=== PATIENT | male | born 1970 | race Caucasian/White ===

== ENCOUNTER 2023-11-20 18:35 | Outpatient (CLI) | payer OTHER, SELFPAY | END 2023-11-20 23:59 | LOC: LAB.DROPOF 18:39 | PROVIDERS: PCP Student in an Organized Health Care Education/Training Program; Visit Provider Student in an Organized Health Care Education/Training Program | DX: J02.9 Acute pharyngitis, unspecified (principal); R09.81 Nasal congestion | CPT/HCPCS: 87635 ==

== ENCOUNTER 2024-06-16 08:45 | Outpatient (CLI) | payer OTHER, SELFPAY ==
[2024-06-16 18:29] LABS: Basophils # 0.1 K/mm3 (0-0.2); Basophils % 1.2 % (0.1-2.0); Eosinophils # 0.1 K/mm3 (0.0-0.4); Eosinophils % 1.9 % (0.1-12.0); Hematocrit 54.3 % (42.0-52.0); Hemoglobin 17.3 g/dL (14.1-18.0); Lymphocytes # 1.6 K/mm3 (0.7-4.5); Lymphocytes % 21.9 % (10-50); Mean Corpuscular HGB Conc 31.8 g/dL (31.8-35.4); Mean Corpuscular Hemoglobin 29.9 pg (27.0-31.2); Mean Corpuscular Volume 94.2 fl (80-94); Mean Platelet Volume 9.2 fl (7.4-10.4); Monocytes # 0.5 K/mm3 (0.1-1.0); Monocytes % 6.1 % (1.7-9.3); Neutrophils # 5.1 K/mm3 (1.8-7.8); Neutrophils % 68.8 % (37.0-80.0); Platelet Count 266 K/mm3 (142-424); Red Blood Count 5.77 M/mm3 (4.60-6.20); Red Cell Distribution Width 14.5 % (11.5-17.5); White Blood Count 7.3 K/mm3 (4.8-10.8)
[2024-06-16 18:48] LABS: Hemoglobin A1C 5.7 % (4.0-6.0)
[2024-06-16 19:37] LABS: Alanine Aminotransferase 47 U/L (12-78); Albumin Level 4.3 g/dl (3.5-5.0); Albumin/Globulin Ratio 1.5 (1.1-1.8); Alkaline Phosphatase 134 U/L (38-126); Anion Gap 10.4 mEq/L (5-15); Aspartate Amino Transferase 33 U/L (17-59); Bilirubin,Total 0.6 mg/dl (0.2-1.3); Blood Urea Nitrogen 14 mg/dl (9-20); Calcium 9.3 mg/dl (8.4-10.2); Carbon Dioxide 27 mmol/L (22.0-30.0); Chloride 104 mmol/L (98-107); Chol/HDL Ratio 3.7 (1-3.5); Cholesterol 143 mg/dl (140-200); Estimated Glomerular Filt Rate 118 ml/min (>60); GFR (African American) 143 ML/MIN (>60); Globulin 2.9 g/dL (1.3-3.2); Glucose 154 mg/dl (74-100); HDL Cholesterol 39 mg/dl (40-60); Potassium 4.4 mmoL/L (3.5-5.1); Sodium 137 mmol/L (136-145); Total Protein,Serum 7.2 g/dl (6.3-8.2); Triglycerides 203 mg/dl (30-150); VLDL Cholesterol 41 mg/dL (0-40)
[2024-06-16 19:48] LABS: Direct LDL Cholesterol 72.72 mg/dL (100-129)
[2024-06-16 19:52] LABS: 25-OH Vitamin D, Total 36.6 ng/mL (30-100)
[2024-06-16 20:11] LABS: Prostate Specific Ag Screen 1.3 ng/ml (0.0-4.0); Thyroid Stimulating Hormone 1.92 uIU/mL (0.465-4.68)
== END 2024-06-16 23:59 | disposition home or self-care (01) ==
LOC: LAB.DROPOF 06-17 14:45
PROVIDERS: PCP Student in an Organized Health Care Education/Training Program; Visit Provider Student in an Organized Health Care Education/Training Program
DX: E11.9 Type 2 diabetes mellitus without complications (principal); Z13.21 Encounter for screening for nutritional disorder; Z13.29 Encounter for screening for other suspected endocrine disorder; Z12.5 Encounter for screening for malignant neoplasm of prostate; Z79.4 Long term (current) use of insulin
CPT/HCPCS: 80050; 80053; 80061; 82306; 83036; 84443; 85025; G0103

== ENCOUNTER 2024-08-02 07:55 | Outpatient (CLI) | payer OTHER, SELFPAY ==
--- NOTE | 2024-08-02 07:59 | XR_ITS ---
FINAL REPORT CLINICAL HISTORY: left knee pain COMPARISON: None FINDINGS: LEFT KNEE: Three views of the left knee reveal no evidence of fracture or dislocation. The bony alignment is normal. Mild degenerative change is present. There is no evidence of joint effusion. No localized soft tissue abnormality is seen. IMPRESSION: Mild degenerative change, with no acute abnormality identified. Reviewed, Interpreted and Dictated by Neeraj Becker III, MD Transcribed by Betina Graves Authenticated and [facility]
== END 2024-08-02 23:59 | disposition home or self-care (01) ==
LOC: RAD 07:56
PROVIDERS: PCP Student in an Organized Health Care Education/Training Program; Visit Provider Orthopaedic Surgery
DX: M25.562 Pain in left knee (principal)
CPT/HCPCS: 73562

== ENCOUNTER 2024-11-20 08:56 | Emergency (ER) | payer OTHER, SELFPAY ==
[2024-11-20 08:57] VITALS: BP 118/82; PULSE 71; RESP 15; TEMP 36.5; O2SAT 98; BMI 31.8
--- NOTE | 2024-11-20 09:03 | ECG_ITS ---
APPROVED REPORT Exam: Resting ECG HR:70 bpm ECG Measurements Heart Rate 70 AXES NH 176 P 75 QRSd 92 QRS 57 QT 384 T 41 QTc 405 Conclusion SINUS RHYTHM LOW QRS VOLTAGE IN PRECORDIAL LEADS [QRS DEFLECTION < 1.0 mV IN CHEST LEADS] BORDERLINE ECG UNCONFIRMED REPORT Electronically signed by : NADER BOLES, 11/21/2024 23:14:37
[2024-11-20 09:04] VITALS: BP 118/82; PULSE 71; O2SAT 95
--- NOTE | 2024-11-20 09:07 | PC.NURSE ---
pt glucose is 209
--- NOTE | 2024-11-20 09:12 | PC.NURSE ---
Respiratory notified that a green top was sent to the lab for a VBG
--- NOTE | 2024-11-20 09:13 | HMH.EDGENADL ---
Discharge Plan Disposition Patient Disposition: Home, Self-Care Prescriptions Prescriptions: New ondansetron 4 mg tablet,disintegrating 4 mg PO Q6HP PRN (Reason: nausea and vomiting) 4 Days Qty: 16 0RF No Action tadalafil 5 mg tablet 5 mg PO DAILY (DME) pen needle, diabetic [BD Ultra-Fine Mini Pen Needle] 31 gauge x 3/16 needle See Rx Instructions .Route Rx Instructions: As directed Jardiance 25 mg tablet 25 mg PO DAILY Qty: 90 1RF insulin glargine U-300 conc [Toujeo SoloStar U-300 Insulin] 300 unit/mL (1.5 mL) insulin pen 30 unit SQ DAILY Qty: 4.5 3RF lisinopril 10 mg tablet 10 mg PO DAILY Qty: 90 3RF nebivolol [Bystolic] 5 mg tablet 5 mg PO DAILY Qty: 90 3RF pravastatin 40 mg tablet 40 mg PO DAILY Qty: 90 3RF lansoprazole 30 mg capsule,delayed release(DR/EC) 30 mg PO DAILY Qty: 90 3RF divalproex 500 mg tablet extended release 24 hr 500 mg PO DAILY testosterone 10 mg/0.5 gram /actuation gel in metered-dose pump 1 pump transdermal DAILY Rx Instructions: apply evenly over front and inner area of one thigh; avoid water for >=2 hrs alprazolam 0.5 mg tablet 0.5 mg PO DAILY PRN (Reason: anxiety) Qty: 30 0RF venlafaxine 75 mg capsule,extended release 24hr 75 mg PO DAILY Qty: 60 1RF venlafaxine 150 mg capsule,extended release 24hr 150 mg PO DAILY Qty: 60 1RF tirzepatide 2.5 mg/0.5 mL pen injector 2.5 mg SQ WEEKLY Qty: 2.5 0RF Rx Instructions: for 4 weeks (DME) 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 See Rx Instructions .Route Qty: 1 0RF Rx Instructions: As directed, check BG TID and prn ondansetron 4 mg tablet,disintegrating See Rx Instructions .ROUTE .COMPLEX Qty: 20 0RF Dose Instruction: DISSOLVE ONE TABLET BY MOUTH EVERY 8 HOURS NEEDED FOR NAUSEA AND VOMITING Rx Instructions: DISSOLVE ONE TABLET BY MOUTH EVERY 8 HOURS NEEDED FOR NAUSEA AND VOMITING (DME) Dexcom G7 Sensor Device See Rx Instructions .Route Qty: 1 3RF Rx Instructions: As directed to monitor blood glucose, change sensor every 10 days Referrals Follow up/Referrals: Zane Hazel DO [Primary Care Provider] - See instructions Activity Restrictions/Add. Instructions Additional Instructions/Restrictions: At this time it was felt you are safe to be discharged home. If new or worsening symptoms please do not hesitate to return the emergency department. Please take your medication as prescribed. As discussed it is probably in her best interest to discontinue taking your Mounjaro although it is difficult for me to tell at this time if it was due to your Mounjaro or due to toxin mediated gastroenteritis (food poisoning from your shrimp dinner). If your symptoms are persistent for longer than 5 to 7 days but are not getting worse please follow-up with your PCP for continued evaluation. Clinical Impressions Clinical Impression: Vomiting, Diarrhea Instructions Patient Instructions: DI for Acute Abdominal Pain Print Language Print Language: Monegasque Discharge ED Provider: Jaciel Rizzo General Adult HPI General Chief complaint: Abdominal Pain Stated complaint: N/V/D, Heart palpitations Time Seen by Provider: 11/20/24 08:58 History of Present Illness HPI narrative: Patient is a 54-year-old male past medical history of insulin-dependent diabetes, hypertension who presents to the emergency department for evaluation of vomiting, diarrhea, intermittent dizziness and palpitations. Onset was acute, over the last 24 hours. Patient recently ate a dinner containing shrimp, he also has recently started Mounjaro 2.5 mg 48 hours ago. He has tolerated Mounjaro previously however it has been sometime in the interim. Vomiting and diarrhea is nonbloody, no chest pain reported. There is some epigastric discomfort but no discrete pain. Previous abdominal surgeries include cholecystectomy. No dysuria reported. His sugars have been in the 100s to 200s per at bedside. When vomiting and diarrhea were intractable he began to sweat causing them to become concerned and present here for continued evaluation. No sick contacts at home. No other acute complaints at this time. Please note that above description of symptoms, in this electronic medical record under categorization of recalled from ER triage doctor by RN are reflective of an initial nursing assessment, however, is not reflective of my full history and physical exam that was personally taken and clarified. Consequentially, this preceding description of symptoms, which may include the patient's categorized chief complaint in the EMR, do not reflect my personal clinical impression, and the ultimate description of history of present illness and patient stated complaints should be deferred to this section of the note. Unless stated otherwise or congruent with this section of the note, additional signs, symptoms, or incongruence should be interpreted as inaccurate with my clinical impression. Related Data Home Medications ?Medication ?Instructions ?Recorded ?Confirmed pen needle, diabetic 31 gauge x 06/16/24 11/20/2412/04 (BD Ultra-Fine Mini Pen Needle) tadalafil 5 mg tablet 5 mg PO DAILY 06/16/24 11/20/24 divalproex 500 mg tablet,extended 500 mg PO DAILY 06/17/24 11/20/24 release 24 hr testosterone 10 mg/0.5 1 pump transdermal DAILY 08/02/24 11/20/24 gram/actuation transdermal gel pump Previous Rx's ?Medication ?Instructions ?Recorded empagliflozin 25 mg tablet 25 mg PO DAILY #90 tabs 06/16/24 (Jardiance) insulin glargine U-300 conc 300 30 unit (0.1 mL) SQ DAILY #4.5 mL 06/16/24 unit/mL (1.5 mL) subcutaneous pen (Toujeo SoloStar U-300 Insulin) lansoprazole 30 mg capsule,delayed 30 mg PO DAILY #90 caps 06/16/24 release lisinopril 10 mg tablet 10 mg PO DAILY #90 tabs 06/16/24 nebivolol 5 mg tablet (Bystolic) 5 mg PO DAILY #90 tabs 06/16/24 pravastatin 40 mg tablet 40 mg PO DAILY #90 tabs 06/16/24 tirzepatide 2.5 mg/0.5 mL 2.5 mg (0.5 mL) SQ WEEKLY #2.5 mL 09/05/24 subcutaneous pen injector blood-glucose meter,continuous #1 ea 09/08/24 (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) alprazolam 0.5 mg tablet 0.5 mg PO DAILY PRN anxiety #30 10/19/24 tabs ondansetron 4 mg disintegrating See Rx Instructions .Route 10/19/24 tablet .COMPLEX #20 tabs venlafaxine 150 mg 150 mg PO DAILY #60 caps 10/19/24 capsule,extended release 24 hr venlafaxine 75 mg capsule,extended 75 mg PO DAILY #60 caps 10/19/24 release 24 hr blood-glucose sensor (Dexcom G7 #1 ea 10/20/24 Sensor device) ondansetron 4 mg disintegrating 4 mg PO Q6HP PRN nausea and 11/20/24 tablet vomiting 4 days #16 tabs Allergies Allergy/AdvReac Type Severity Reaction Status Date / Time promethazine (From Phenergan) Allergy Palpitation Verified 11/20/24 09:08 s [facility] Disclaimer: The information contained in this section may have been updated after the patient was seen, as this information can be updated by other users. Medical History Hyperlipidemia Diabetes mellitus Hypertension Surgical History Hx of tonsillectomy Family History Mother FHx: mental illness Anxiety Other No significant family history Social History Smoking Status: Never smoker alcohol intake: never current occupational status: employed Travel in the last 8 weeks: Inside the [place] Have you lived/traveled outside [place] in past 30 days?: No Contact w/someone who lives/traveled outside [place] past 30 days?: No Exposure to someone with infectious disease in past 14 days?: No Do you have a fever (greater than 100.4 F or 38 C)?: No Have you tested positive for COVID-19: No Exposed to someone with COVID-19 in past 14 days?: No Do you have a sore throat?: No Do you have a cough?: No Do you have any weakness?: No Do you have any diarrhea?: Yes Are you experiencing any unusual bleeding?: No Do you have any muscle aches/pain?: No Do you have any abdominal pain?: No Are you experiencing loss of taste or smell?: No Other Medical History Have you received the Pneumonia Vaccine: No ROS Obtained: Yes Systems reviewed as appropriate & no additional complaints except as documented Physical Exam General General appearance: alert and other (Appearing uncomfortable in bed) Head Head exam: atraumatic and normocephalic Eye Eye exam: Present PERRL ENT ENT exam: Present mucous membranes moist Neck Neck exam: Present normal inspection Chest Chest inspection: Present normal inspection and symmetric chest wall rise Respiratory Respiratory exam: Present normal lung sounds bilaterally; Absent respiratory distress Cardiovascular Cardiovascular exam: Present regular rate, normal rhythm and other (Capillary refill 2 to 3 seconds) Abdominal Exam Abdominal exam: Present soft and tenderness (Mild, epigastric); Absent guarding or rebound Extremities Exam Extremities exam: Present normal inspection Neurological Exam Neurological exam: Present alert Psychiatric Psychiatric exam: Present normal affect Skin Skin exam: Present warm and dry Medical Decision Making Medical Records Screening: Per USPSTF and CDC recommendations, given the prevalence of disease in our region, it is our hospital?s policy to screen for HIV and viral Hepatitis for all patients aged 18 and over and those with ongoing risk factors. Damien Inquiry Pt receiving controlled substance: No Vital Signs: 11/20/24 08:57 11/20/24 09:04 11/20/24 09:30 Temperature 97.7 F Temperature Source Oral Pulse Rate 71 72 Pulse Rate [Left Radial] 71 Respiratory Rate 15 14 Blood Pressure 118/82 123/82 Blood Pressure [Right Arm] 118/82 Blood Pressure Mean [Right Arm] 94 Blood Pressure Source [Right Arm] Automatic Cuff Blood Pressure Position [Right Arm] Supine 02 Sat by Pulse Oximetry 98 95 99 Oxygen Delivery Method Room Air Room Air Room Air Lab Data Lab Results 11/20/24 09:00: WBC 16.1 H, RBC 6.40 H, Hct 55.9 H, MCV 87.3, MCH 29.1, MCHC 33.3, RDW 13.3, Plt Count 325, MPV 9.9, Neut % (Auto) 82.6 H, Lymph % (Auto) 8.3 L, [place] % (Auto) 6.8, Eos % (Auto) 0.6, Baso % (Auto) 0.7, Neut # (Auto) 13.3 H, Lymph # (Auto) 1.3, [place] # (Auto) 1.1 H, Eos # (Auto) 0.1, Baso # (Auto) 0.1, VBG pH 7.35, VBG pCO2 50.0, VBG pO2 26.6 L, VBG HCO3 27.2, VBG Total CO2 28.7 H, VBG O2 Saturation 45.2 L, VBG Base Excess 1.6, VBG Lactic Acid 1.7, Sodium 139, Potassium 5.0, Chloride 99, Carbon Dioxide 32 H, Anion Gap 13.0, BUN 19, Creatinine 0.90, Estimated Creat Clear 141, Estimated GFR 88, Est GFR ( Amer) 106, Glucose 223 H, Calcium 9.9, Magnesium 1.9, Total Bilirubin 0.9, Alkaline Phosphatase 131 H, Troponin I < 0.01, Total Protein 8.7 H, Albumin 5.3 H, Globulin 3.4 H, Albumin/Globulin Ratio 1.6, Lipase 127 11/20/24 09:00 11/20/24 09:00 Orders (Tests/Meds): ED MEDICATIONS Discontinued Medications Generic Name Dose Route Start Last Admin Trade Name Freq PRN Reason Stop Dose Admin Belladonna Alkaloids 60 ml 11/20/24 09:44 11/20/24 09:46 Belladonna Alkaloids 60 Ml Ml PO 11/20/24 09:45 60 ml ONCE ONE Administration Lactated Ringer's 1,000 mls @ 999 mls/hr 11/20/24 09:08 11/20/24 09:23 Lactated Ringer's 1000 Ml Bag IV 11/20/24 10:08 999 mls/hr .Q1H1M ONE Administration Ondansetron HCl 4 mg 11/20/24 09:09 11/20/24 09:23 Ondansetron 4mg/2ml Vial IV 11/20/24 09:10 4 mg ONCE ONE Administration ORDERS Category Date Time Status Acetone, Serum (Rapid) Stat Lab 11/20/24 09:00 Results CBC w/Auto Diff [Complete Blood Count Auto Diff] Stat Lab 11/20/24 09:00 Results CMP [Comprehensive Metabolic Panel] Stat Lab 11/20/24 09:00 Results HIV Combo Stat Lab 11/20/24 09:18 Ordered Hepatitis C Ab Qual. W/ RFX Stat Lab 11/20/24 09:18 Ordered Lipase Stat Lab 11/20/24 09:00 Results Magnesium Stat Lab 11/20/24 09:00 Results Rapid PCR Covid and Flu A/B Stat Lab 11/20/24 09:05 Received Trop I [Troponin I] Stat Lab 11/20/24 09:00 Results Troponin I Q3H Lab 11/20/24 12:15 Ordered Troponin I Q3H Lab 11/20/24 15:15 Ordered UA [Urinalysis and Microscopic] Stat Lab 11/20/24 09:13 Ordered VBG [Venous Blood Gas] Stat RT 11/20/24 09:00 Completed ECG Data Tracing #1: Independently interpreted by me rate is 70, rhythm is regular, axis is normal, no ST elevation in anatomical contiguous leads, QTc 405. Medical Decision Narrative: In summary patient is a 54-year-old male past medical history described above who presents emergency department for evaluation of vomiting, diarrhea, diaphoresis and subjective palpitations in the setting of recent seafood ingestion, recent Mounjaro initiation. Patient is hemodynamically stable and nontoxic-appearing upon arrival, afebrile, appearing uncomfortable in bed. Differential diagnosis includes toxin mediated gastroenteritis, medication adverse reaction, atypical ACS, DKA, viral syndrome, pancreatitis, among others. Workup will be conducted with hematologic labs, EKG, troponin, viral swab, urinalysis, VBG. Initial inventions include Zofran, crystalloid bolus. CT imaging was considered however given that he is only mildly tender in the epigastric region has a nonfocal abdominal exam otherwise will be deferred. Stool studies unlikely to significantly alter care due to duration of symptoms less than 10 days and no recent antibiotic use will be deferred. EKG nonischemic. Patient will be placed on continuous cardiac monitoring. Initial hematologic labs reviewed by me leukocytosis of 16.1 of undetermined etiology, could be due to infection or stress mediated response from vomiting which I would expect. Compensated acid-base status rules out DKA no elevated lactate normal pH, no critical electrolyte abnormality or JENNIFER, initial troponin undetectably low glucose 223 nonactionable lipase normal. Upon repeat evaluation patient had reflux type symptoms due to persistent vomiting for which GI cocktail will be administered. Patient underwent p.o. trial with successful at bedside, was more well-appearing than when he presented and had no dynamic changes in the emergency department. Given this. The patient is appropriate for outpatient management at this time and patient was given return precautions verbalized understanding will be discharged with a course of Zofran and he will discontinue his Mounjaro. Critical Care Critical Care Time Critical Care Time: No
[2024-11-20 09:16] LABS: Basophils # 0.1 K/mm3 (0-0.2); Basophils % 0.7 % (0.1-2.0); Eosinophils # 0.1 K/mm3 (0.0-0.4); Eosinophils % 0.6 % (0.1-12.0); Hematocrit 55.9 % (42.0-52.0); Lymphocytes # 1.3 K/mm3 (0.7-4.5); Lymphocytes % 8.3 % (10-50); Mean Corpuscular HGB Conc 33.3 g/dL (31.8-35.4); Mean Corpuscular Hemoglobin 29.1 pg (27.0-31.2); Mean Corpuscular Volume 87.3 fl (80-94); Mean Platelet Volume 9.9 fl (7.4-10.4); Monocytes # 1.1 K/mm3 (0.1-1.0); Monocytes % 6.8 % (1.7-9.3); Neutrophils # 13.3 K/mm3 (1.8-7.8); Neutrophils % 82.6 % (37.0-80.0); Platelet Count 325 K/mm3 (142-424); Red Cell Distribution Width 13.3 % (11.5-17.5); White Blood Count 16.1 K/mm3 (4.8-10.8)
[2024-11-20 09:18] LABS: Lactate Venous 1.7 mmol/L (0.4-2.0); VBG Base Excess 1.6 mmol/L (-2.4-2.3); VBG HCO3 27.2 mmol/L (23-30); VBG Oxygen Saturation 45.2 % (50-70); VBG PH 7.35 mmol/L (7.31-7.41); VBG PO2 26.6 mmol/L (28-40); VBG Total CO2 28.7 mmol/L (23-27)
[2024-11-20 09:23] LABS: Albumin Level 5.3 g/dl (3.5-5.0); Albumin/Globulin Ratio 1.6 (1.1-1.8); Alkaline Phosphatase 131 U/L (38-126); Bilirubin,Total 0.9 mg/dl (0.2-1.3); Blood Urea Nitrogen 19 mg/dl (9-20); Calcium 9.9 mg/dl (8.4-10.2); Carbon Dioxide 32 mmol/L (22.0-30.0); Chloride 99 mmol/L (98-107); Creatinine Clearance Estimated 141 mL/min (50-200); Estimated Glomerular Filt Rate 88 ml/min (>60); GFR (African American) 106 ML/MIN (>60); Globulin 3.4 g/dL (1.3-3.2); Glucose 223 mg/dl (74-100); Lipase 127 U/L (23-300); MANUAL DIFFERENTIAL MANUAL DIFFERENTIAL (MANUAL DIFF); Magnesium 1.9 mg/dl (1.6-2.3); Sodium 139 mmol/L (136-145); Total Protein,Serum 8.7 g/dl (6.3-8.2)
[2024-11-20] MEDS: LACTATED RINGERS 1000ML 1,000 ML 999 ML IV (09:23)
[2024-11-20] MEDS: ONDANSETRON 4MG/2ML VIAL 4 MG IV (09:23)
[2024-11-20 09:30] VITALS: BP 123/82; PULSE 72; RESP 14; O2SAT 99
--- NOTE | 2024-11-20 09:34 | PC.NURSE ---
at bs speaking with pt and
[2024-11-20 09:42] LABS: Troponin I < 0.01 ng/ml (0.00-0.034)
[2024-11-20] MEDS: BELLADONNA ALKALOIDS 60 ML ML PO (09:46)
--- NOTE | 2024-11-20 09:50 | PC.NURSE ---
pt unable to urinate at this time, aware that it is needed.
[2024-11-20 10:00] VITALS: BP 122/87; PULSE 77; RESP 21; O2SAT 99
--- NOTE | 2024-11-20 10:04 | PC.NURSE ---
Pt was given a Starry. Call light is within reach. No other needs at this time
[2024-11-20 10:07] LABS: Coronavirus 19, PCR Not Detected (NotDetected); Influenza A, PCR Not Detected (NotDetected); Influenza B, PCR Not Detected (NotDetected)
[2024-11-20 10:18] LABS: Hemoglobin 18.6 g/dL (14.1-18.0)
--- NOTE | 2024-11-20 10:26 | PC.NURSE ---
pt waiting on fluids to finish for dc
--- NOTE | 2024-11-20 10:26 | PC.NURSE ---
AT BS SPEAKING WITH PT AND
[2024-11-20 10:27] VITALS: BP 128/87; PULSE 74; RESP 19; O2SAT 98
[2024-11-20 10:28] LABS: Alanine Aminotransferase 70 U/L (12-78); Aspartate Amino Transferase 59 U/L (17-59)
[2024-11-20 10:50] VITALS: BP 127/81; PULSE 78; RESP 19; TEMP 36.5; O2SAT 98
[2024-11-20 11:11] LABS: Acetone, Serum (Rapid) None Detected (None Detect)
[2024-11-20 11:15] LABS: Eosinophils % 1 % (0-3); Lymphocytes % 10 % (10-50); Monocytes % 6 % (2-9); Neutrophils % 83 % (42-76); Platelet Estimate Normal; RBC Morphology Normal; Total Cells Counted 100
[2024-11-20 11:49] LABS: HIV Combo NEGATIVE (Negative)
[2024-11-20 11:57] LABS: Hepatitis C Ab Qual. W/ RFX NEGATIVE (Negative)
== END 2024-11-20 10:51 | disposition home or self-care (01) ==
PROVIDERS: Emergency Provider Emergency Medicine; PCP Internal Medicine
DX: R11.10 Vomiting, unspecified (principal); R19.7 Diarrhea, unspecified; R00.2 Palpitations; R42 Dizziness and giddiness; R61 Generalized hyperhidrosis; R10.13 Epigastric pain
CPT/HCPCS: 80053; 82009; 82803; 83690; 83735; 84484; 85007; 85025; 85027; 86803; 87389; 87636; 93005; 96361; 96374; 99283; J2405; J7120

== ENCOUNTER 2024-12-02 09:23 | Outpatient (CLI) | payer OTHER, SELFPAY ==
[2024-12-02 13:18] LABS: Creatinine,Urine Random 84 mg/dL (Not Estab.); Microalbumin < 6.000 mg/L (0-16.7)
[2024-12-02 13:48] LABS: Hemoglobin A1C 7.8 % (4.0-6.0)
[2024-12-10 19:10] LABS: Testosterone, Total, LC/MS 387 ng/dL (.)
== END 2024-12-02 23:59 | disposition home or self-care (01) ==
LOC: LAB.DROPOF 12-05 10:24
PROVIDERS: PCP Internal Medicine; Visit Provider Internal Medicine
DX: E11.9 Type 2 diabetes mellitus without complications (principal); E29.1 Testicular hypofunction
CPT/HCPCS: 82043; 82570; 83036; 84403

== ENCOUNTER 2025-01-26 09:58 | Emergency (ER) | payer OTHER, SELFPAY ==
[2025-01-26] VITALS (7 sets, daily range): BP systolic 100–122; BP diastolic 68–85; PULSE 66–82; RESP 16; TEMP 36.6–36.7; O2SAT 96–99; BMI 26.9
--- NOTE | 2025-01-26 10:05 | PC.NURSE ---
in room at bed side talking with patient at this time
[2025-01-26] MEDS: LACTATED RINGERS 1000ML 1,000 ML 999 ML IV (10:17)
--- NOTE | 2025-01-26 10:19 | ECG_ITS ---
APPROVED REPORT Exam: Resting ECG HR:75 bpm ECG Measurements Heart Rate 75 AXES MN 166 P 21 QRSd 89 QRS 10 QT 363 T 2 QTc 391 Conclusion SINUS RHYTHM No acute ST changes concerning for ischemia. Normal intervals Electronically signed by : KAT VALDEZ, 01/26/2025 16:21:58
--- NOTE | 2025-01-26 10:24 | PC.NURSE ---
Rounded on patient, warm blanket provided at this time.
[2025-01-26 10:25] LABS: VBG Base Excess 0.7 mmol/L (-2.4-2.3); VBG HCO3 26.6 mmol/L (23-30); VBG Oxygen Saturation 70.1 % (50-70); VBG PCO2 51.2 mmol/L (35-51); VBG PH 7.33 mmol/L (7.31-7.41); VBG PO2 38.4 mmol/L (28-40); VBG Total CO2 28.1 mmol/L (23-27)
--- NOTE | 2025-01-26 10:28 | HMH.EDGENADL ---
Discharge Plan Disposition Patient Disposition: Home, Self-Care Condition: Good Prescriptions Prescriptions: New ibuprofen 800 mg tablet 800 mg PO Q8H PRN (Reason: pain) Qty: 20 0RF ondansetron 4 mg tablet,disintegrating 4 mg PO Q8H PRN (Reason: nausea and vomiting) 4 Days Qty: 12 0RF No Action tadalafil 5 mg tablet 5 mg PO DAILY (DME) pen needle, diabetic [BD Ultra-Fine Mini Pen Needle] 31 gauge x 3/16 needle See Rx Instructions .Route Rx Instructions: As directed Jardiance 25 mg tablet 25 mg PO DAILY Qty: 90 1RF lisinopril 10 mg tablet 10 mg PO DAILY Qty: 90 3RF nebivolol [Bystolic] 5 mg tablet 5 mg PO DAILY Qty: 90 3RF pravastatin 40 mg tablet 40 mg PO DAILY Qty: 90 3RF lansoprazole 30 mg capsule,delayed release(DR/EC) 30 mg PO DAILY Qty: 90 3RF divalproex 500 mg tablet extended release 24 hr 500 mg PO DAILY (DME) 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 See Rx Instructions .Route Qty: 1 0RF Rx Instructions: As directed, check BG TID and prn (DME) Dexcom G7 Sensor Device See Rx Instructions .Route Qty: 1 3RF Rx Instructions: As directed to monitor blood glucose, change sensor every 10 days insulin glargine U-300 conc [Toujeo SoloStar U-300 Insulin] 300 unit/mL (1.5 mL) insulin pen See Rx Instructions .ROUTE .COMPLEX Qty: 4.5 3RF Dose Instruction: INJECT 30 UNITS SUBCUTANEOUSLY EVERY DAY Rx Instructions: INJECT 30 UNITS SUBCUTANEOUSLY EVERY DAY alprazolam 0.5 mg tablet 0.5 mg PO DAILY PRN (Reason: anxiety) Qty: 30 0RF testosterone 20.25 mg/1.25 gram (1.62 %) gel in metered-dose pump 2 pump topical DAILY Qty: 75 0RF Rx Instructions: apply 1 pump amount over max area of EACH upper arm and shoulder tirzepatide 7.5 mg/0.5 mL pen injector 7.5 mg SQ WEEKLY Qty: 2.5 2RF venlafaxine 75 mg capsule,extended release 24hr 75 mg PO DAILY Qty: 60 1RF venlafaxine 150 mg capsule,extended release 24hr 150 mg PO DAILY Qty: 60 1RF ondansetron 4 mg tablet,disintegrating 4 mg PO Q6HP PRN (Reason: nausea and vomiting) 4 Days Qty: 16 0RF Referrals Follow up/Referrals: Zane Hazel DO [Primary Care Provider] - See instructions Activity Restrictions/Add. Instructions Additional Instructions/Restrictions: You were evaluated in the emergency department today. Please follow-up very close with your primary care provider. It is unclear at this time if this could be related to the shrimp that you ate versus a reaction to the Mounjaro. I recommend seeking his guidance on continuance of this medication. 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 You may also take Tylenol every 4-6 hours as needed for any sort of pain or fever. I recommend bowel rest and eating bland diet, starting with liquid diet and slowly advancing your diet as able. Return to the emergency department for new or worsening symptoms. We have provided you with an outpatient order form for diarrhea panel if you are able to provide a stool specimen. Clinical Impressions Clinical Impression: Diarrhea, Eosinophilia, Elevated lipase Stand Alone Forms Stand Alone Forms: Work/School Release Instructions Patient Instructions: DI for Diarrhea and Traveler's Diarrhea -- Adult, DI for Nausea -- Adult, Full Liquid Diet Print Language Print Language: Tamazight Discharge ED Provider: Tory Macias General Adult HPI General Chief complaint: Nausea/Vomiting/Diarrhea Stated complaint: Sent by PCP. Diarr, Colon Infection Time Seen by Provider: 01/26/25 10:04 Mode of Arrival: Ambulatory Source of Information: Patient Description of Symptoms (Recalled from ER Triage Doc. by RN): patient states he has had nausea vomiting diarrhea for one week. he reports he takes mounjaro and the dose was increased on last thursday and since then the diarrhea has gotten worse. he reports going approximatley 10-15 times the past 3 days. denies any abdominal pain History of Present Illness HPI narrative: This patient is a 54-year-old male with a history of insulin-dependent diabetes now off of insulin managed on Mounjaro, hypertension, hyperlipidemia presenting to the emergency department for evaluation with concern for nausea, vomiting, and diarrhea. Patient reports that he has had issues with nausea and vomiting with Mounjaro, but it typically subsides after a day or 2. He notes that he took an increased dose going from 5 mg to 7.5 mg 10 days ago, and since then he has been very ill. He notes he initially had his usual nausea/vomiting, which subsided after a few days, however he has had persistent watery diarrhea since then. He notes that he had about 15 bowel movements last night and had to sleep in the bathroom floor because he was losing control of his bowels. He has not had any fevers, chest pain, shortness of breath, abdominal pain, hematemesis, melena, or hematochezia. He also denies any urinary symptoms such as dysuria, urinary frequency, urinary urgency. No known sick contacts. He notes that he has had a colonoscopy every 2 to 3 years because of a family history of rectal cancer, and he has had normal colonoscopies with no history of diverticulosis. Related Data Home Medications ?Medication ?Instructions ?Recorded ?Confirmed pen needle, diabetic 31 gauge x 06/16/24 12/02/2412/04 (BD Ultra-Fine Mini Pen Needle) tadalafil 5 mg tablet 5 mg PO DAILY 06/16/24 12/02/24 divalproex 500 mg tablet,extended 500 mg PO DAILY 06/17/24 12/02/24 release 24 hr Previous Rx's ?Medication ?Instructions ?Recorded empagliflozin 25 mg tablet 25 mg PO DAILY #90 tabs 06/16/24 (Jardiance) lansoprazole 30 mg capsule,delayed 30 mg PO DAILY #90 caps 06/16/24 release lisinopril 10 mg tablet 10 mg PO DAILY #90 tabs 06/16/24 nebivolol 5 mg tablet (Bystolic) 5 mg PO DAILY #90 tabs 06/16/24 pravastatin 40 mg tablet 40 mg PO DAILY #90 tabs 06/16/24 blood-glucose,children's literature professor,cont #1 ea 09/08/24 (Dexcom G7 Tree Driller) blood-glucose sensor (Dexcom G7 #1 ea 10/20/24 Sensor device) ondansetron 4 mg disintegrating 4 mg PO Q6HP PRN nausea and 11/20/24 tablet vomiting 4 days #16 tabs insulin glargine U-300 conc 300 See Rx Instructions .Route 01/02/25 unit/mL (1.5 mL) subcutaneous pen .COMPLEX #4.5 mL (Touecho SoloStar U-300 Insulin) alprazolam 0.5 mg tablet 0.5 mg PO DAILY PRN anxiety #30 01/04/25 tabs testosterone 2 pump topical DAILY #75 grams 01/09/25 tirzepatide 7.5 mg/0.5 mL 7.5 mg (0.5 mL) SQ WEEKLY #2.5 mL 01/09/25 subcutaneous pen injector venlafaxine 150 mg 150 mg PO DAILY #60 caps 01/13/25 capsule,extended release 24 hr venlafaxine 75 mg capsule,extended 75 mg PO DAILY #60 caps 01/13/25 release 24 hr ibuprofen 800 mg tablet 800 mg PO Q8H PRN pain #20 tabs 01/26/25 ondansetron 4 mg disintegrating 4 mg PO Q8H PRN nausea and 01/26/25 tablet vomiting 4 days #12 tabs Allergies Allergy/AdvReac Type Severity Reaction Status Date / Time promethazine (From Phenergan) Allergy Palpitation Verified 01/26/25 10:48 s PFS PFS Disclaimer: The information contained in this section may have been updated after the patient was seen, as this information can be updated by other users. Medical History Low testosterone level in male Hyperlipidemia Diabetes mellitus Hypertension Surgical History History of colonoscopy H/O vasectomy Hx of cholecystectomy Hx of tonsillectomy Family History Mother FHx: mental illness Father Cancer Other No significant family history Social History Smoking Status: Never smoker alcohol intake: current alcohol intake frequency: holidays/special occasions only substance use type: denies use current occupational status: employed Travel in the last 8 weeks?: None Have you lived/traveled outside [place] in past 30 days?: No Contact w/someone who lives/traveled outside [place] past 30 days?: No Exposure to someone with infectious disease in past 14 days?: No Do you have a fever (greater than 100.4 F or 38 C)?: No Have you tested positive for COVID-19?: No Exposed to someone with COVID-19 in past 14 days?: No Do you have a sore throat?: No Do you have a cough?: No Do you have any weakness?: No Do you have any diarrhea?: Yes Are you experiencing any unusual bleeding?: No Do you have any muscle aches/pain?: No Do you have any abdominal pain?: Yes Are you experiencing loss of taste or smell?: No Other Medical History Have you received the Pneumonia Vaccine: No ROS Obtained: Yes All systems reviewed & no additional complaints except as documented Physical Exam General General appearance: alert and in no apparent distress Head Head exam: atraumatic and normocephalic Eye Eye exam: Present normal appearance, PERRL and EOMI ENT ENT exam: Present normal exam, normal oropharynx, mucous membranes moist and normal external ear exam Neck Neck exam: Present normal inspection, full ROM and trachea midline; Absent tenderness Chest Chest inspection: Present normal inspection and symmetric chest wall rise; Absent tenderness Respiratory Respiratory exam: Present normal lung sounds bilaterally; Absent respiratory distress, wheezes, stridor or accessory muscle use Cardiovascular Cardiovascular exam: Present regular rate and normal rhythm Abdominal Exam Abdominal exam: Present soft and tenderness (Mild left-sided/left upper quadrant tenderness to deep palpation, otherwise abdominal exam is benign); Absent distention or guarding Extremities Exam Extremities exam: Present normal inspection, full ROM and normal capillary refill; Absent tenderness or edema Back Exam Back exam: Present normal inspection and full ROM; Absent tenderness Neurological Exam Neurological exam: Present alert, oriented X3, CN II-XII intact and normal gait; Absent motor sensory deficit Psychiatric Psychiatric exam: Present normal affect and normal mood Skin Skin exam: Present warm and dry Medical Decision Making Medical Records Medical records reviewed: Yes I reviewed the patient's medical records. Screening: Per USPSTF and CDC recommendations, given the prevalence of disease in our region, it is our hospital?s policy to screen for HIV and viral Hepatitis for all patients aged 18 and over and those with ongoing risk factors. Damien Inquiry Pt receiving controlled substance: No Vital Signs: 01/26/25 10:04 01/26/25 10:06 01/26/25 10:30 Temperature 97.8 F Temperature Source Oral Pulse Rate 82 77 Pulse Rate [Left Radial] 78 Respiratory Rate 16 Blood Pressure 122/85 111/70 Blood Pressure [Left Arm] 122/85 Blood Pressure Mean [Left Arm] 97 Blood Pressure Source Blood Pressure Source [Left Arm] Automatic Cuff Blood Pressure Position Blood Pressure Position [Left Arm] Supine 02 Sat by Pulse Oximetry 96 99 97 Oxygen Delivery Method Room Air 01/26/25 11:00 01/26/25 11:30 01/26/25 12:00 Temperature Temperature Source Pulse Rate 77 67 66 Pulse Rate [Left Radial] Respiratory Rate Blood Pressure 111/69 116/74 100/68 L Blood Pressure [Left Arm] Blood Pressure Mean [Left Arm] Blood Pressure Source Blood Pressure Source [Left Arm] Blood Pressure Position Blood Pressure Position [Left Arm] 02 Sat by Pulse Oximetry 96 96 96 Oxygen Delivery Method 01/26/25 12:33 Temperature 98.1 F Temperature Source Oral Pulse Rate 78 Pulse Rate [Left Radial] Respiratory Rate 16 Blood Pressure 110/68 Blood Pressure [Left Arm] Blood Pressure Mean [Left Arm] Blood Pressure Source Automatic Cuff Blood Pressure Source [Left Arm] Blood Pressure Position Sitting Blood Pressure Position [Left Arm] 02 Sat by Pulse Oximetry Oxygen Delivery Method Room Air Lab Data Lab results reviewed: Yes I reviewed the patient's lab results. Lab Results 01/26/25 10:09: VBG pH 7.33, VBG pCO2 51.2 H, VBG pO2 38.4, VBG HCO3 26.6, VBG Total CO2 28.1 H, VBG O2 Saturation 70.1 H, VBG Base Excess 0.7, VBG Lactic Acid 2.0 01/26/25 10:14: Sodium 137, Potassium 3.5, Chloride 102, Carbon Dioxide 31 H, Anion Gap 7.5, BUN 11, Creatinine 0.80, Estimated Creat Clear 142, Estimated GFR 101, Est GFR ( Amer) 122, Glucose 145 H, Calcium 9.4, Phosphorus 3.5, Magnesium 1.8, Total Bilirubin 0.4, AST 37, ALT 35, Alkaline Phosphatase 135 H, Total Protein 7.0, Albumin 4.1, Globulin 2.9, Albumin/Globulin Ratio 1.4, Lipase 357 H, TSH 1.13, Thyroxine (T4) 8.4 01/26/25 10:31: WBC 10.0, RBC 5.16, Hgb 15.1, Hct 44.5, MCV 86.2, MCH 29.3, MCHC 33.9, RDW 12.9, Plt Count 184, MPV 9.8, Neut % (Auto) 47.7, Lymph % (Auto) 23.4, [place] % (Auto) 4.6, Eos % (Auto) 22.4 H, Baso % (Auto) 1.0, Neut # (Auto) 4.8, Lymph # (Auto) 2.4, [place] # (Auto) 0.5, Eos # (Auto) 2.3 H, Baso # (Auto) 0.1, Total Counted 100, Neutrophils % (Manual) 53, Band Neutrophils % 1.0, Lymphocytes % (Manual) 25, Monocytes % (Manual) 2, Eosinophils % (Manual) 19 H, Platelet Estimate Normal, RBC Morphology Normal 01/26/25 10:31 01/26/25 10:14 Orders (Tests/Meds): ED MEDICATIONS Discontinued Medications Generic Name Dose Route Start Last Admin Trade Name Freq PRN Reason Stop Dose Admin Famotidine 20 mg 01/26/25 11:25 01/26/25 11:47 Famotidine 20mg/2ml Vial IV 01/26/25 11:26 20 mg ONCE ONE Administration Lactated Ringer's 1,000 mls @ 999 mls/hr 01/26/25 10:09 01/26/25 10:17 Lactated Ringer's 1000 Ml Bag IV 01/26/25 11:09 999 mls/hr .Q1H1M ONE Administration Ondansetron HCl 4 mg 01/26/25 10:36 01/26/25 10:43 Ondansetron 4mg/2ml Vial IV 01/26/25 10:37 4 mg ONCE ONE Administration Sodium Chloride 8 ml 01/26/25 11:25 Sodium Chloride 0.9% 10ml Vial IV 02/25/25 11:24 NEEDED PRN dilute pepcid ORDERS Category Date Time Status Complete Blood Count Auto Diff Stat Lab 01/26/25 10:31 Completed Comprehensive Metabolic Panel Stat Lab 01/26/25 10:14 Completed Diarrhea 23 Panel, PCR Stat Lab 01/26/25 12:27 Received Lipase Stat Lab 01/26/25 10:14 Completed MAG [Magnesium] Stat Lab 01/26/25 10:14 Completed PHOS [Phosphorous] Stat Lab 01/26/25 10:14 Completed T4 (Thyroxine) Stat Lab 01/26/25 10:14 Completed TSH [Thyroid Stimulating Hormone] Stat Lab 01/26/25 10:14 Completed VBG [Venous Blood Gas] Stat RT 01/26/25 10:09 Completed ECG Data Tracing #1: I reviewed this ECG and interpreted as documented below: Normal sinus rhythm with a ventricular rate of [address] changes concerning for ischemia. Normal intervals ECG initial impression date: 01/26/25 ECG initial impression time: 10:20 Medical Decision Narrative: In summary, this patient is a 54-year-old male presenting to the Emergency Department for evaluation of nausea, vomiting, and diarrhea. Differential diagnoses considered include but are not limited to side effect of Mounjaro, gastroenteritis, bacterial gastroenteritis, viral gastroenteritis, diverticulitis, dehydration, electrolyte derangements. Ruling out the most morbid conditions drove assessment. It should be noted patient's history includes obesity, type 2 diabetes, hypertension which are currently being well-managed. This complicates all aspects of care by increasing patient's risk for morbidity. I reviewed patient's past medical records and noted prior PCP evaluations for maintenance of health and management of Mounjaro. On exam, the patient is lying in bed in no acute distress with normal vitals on cardiac telemetry. He has minimal left-sided abdominal tenderness to very deep palpation, but no rebound or guarding. He is nontoxic-appearing. Workup included CBC, CMP, lipase, magnesium, phosphorus, diarrhea panel, EKG. He was given a bolus of IV fluids as well as IV Zofran for symptomatic improvement. On multiple subsequent reassessments, the patient is resting comfortably in bed with no recurrence of diarrhea. He initially was unable to provide a stool specimen, however I provided him with a drink and crackers and he was able to provide us with a small sample. This was sent and is pending for testing. CBC demonstrates no significant leukocytosis, but he does have eosinophilia. His then noted that he had had diarrhea in the past after eating shrimp, and he did have shrimp yesterday. It is possible he could have some allergic response/histamine response to the shrimp that is causing worsened diarrhea in the setting of some GI upset that it was pre-existing related to his Mounjaro. Chemistry demonstrates a very mildly elevated lipase, but he does not have any significant abdominal tenderness, even to deep palpation. He also complains of no significant abdominal pain. I considered CT imaging of the abdomen, however I had shared decision-making with the patient and his , and we are in agreement that he likely does not have acute surgical intra-abdominal pathology and I do not feel that is likely to pattern changer. CT scan was deferred at this time after discussion was had with patient. Pepcid was administered given concern for possible eosinophilic/histamine response causing his diarrhea. Ultimately, patient is well-appearing with benign abdominal exam and normal vitals on cardiac telemetry. Labs overall are very reassuring with diarrhea panel pending. I feel he is appropriate for discharge home with prescriptions for ibuprofen, Zofran, and instructions for bowel rest. He was given instructions for very close follow-up with his primary care provider, instructions to avoid shellfish, and very strict return precautions at time of discharge. Critical Care Critical Care Time Critical Care Time: No
[2025-01-26 10:35] LABS: Alanine Aminotransferase 35 U/L (12-78); Albumin Level 4.1 g/dl (3.5-5.0); Albumin/Globulin Ratio 1.4 (1.1-1.8); Alkaline Phosphatase 135 U/L (38-126); Anion Gap 7.5 mEq/L (5-15); Aspartate Amino Transferase 37 U/L (17-59); Bilirubin,Total 0.4 mg/dl (0.2-1.3); Blood Urea Nitrogen 11 mg/dl (9-20); Calcium 9.4 mg/dl (8.4-10.2); Carbon Dioxide 31 mmol/L (22.0-30.0); Chloride 102 mmol/L (98-107); Creatinine Clearance Estimated 142 mL/min (50-200); Estimated Glomerular Filt Rate 101 ml/min (>60); GFR (African American) 122 ML/MIN (>60); Globulin 2.9 g/dL (1.3-3.2); Glucose 145 mg/dl (74-100); Lipase 357 U/L (23-300); Magnesium 1.8 mg/dl (1.6-2.3); Phosphorous 3.5 mg/dl (2.5-4.5); Potassium 3.5 mmoL/L (3.5-5.1); Sodium 137 mmol/L (136-145)
[2025-01-26 10:36] LABS: Basophils # 0.1 K/mm3 (0-0.2); Eosinophils # 2.3 Kmm3 (0.0-0.4); Eosinophils % 22.4 % (0.1-12.0); Hematocrit 44.5 % (42.0-52.0); Hemoglobin 15.1 g/dL (14.1-18.0); Immature Granulocytes # 0.09 10^3uL; Immature Granulocytes % 0.9 %; Lymphocytes # 2.4 K/mm3 (0.7-4.5); Lymphocytes % 23.4 % (10-50); Mean Corpuscular HGB Conc 33.9 g/dL (31.8-35.4); Mean Corpuscular Hemoglobin 29.3 pg (27.0-31.2); Mean Corpuscular Volume 86.2 fl (80-94); Mean Platelet Volume 9.8 fl (7.4-10.4); Monocytes # 0.5 K/mm3 (0.1-1.0); Monocytes % 4.6 % (1.7-9.3); Neutrophils # 4.8 K/mm3 (1.8-7.8); Neutrophils % 47.7 % (37.0-80.0); Nucleated Red Blood Cells # 0 10^3/uL; Nucleated Red Blood Cells % 0 %; Platelet Count 184 K/mm3 (142-424); Red Blood Count 5.16 M/mm3 (4.60-6.20); Red Cell Distribution Width 12.9 % (11.5-17.5); Red Cell Distribution Width-SD 40.2 fL
[2025-01-26 10:38] LABS: MANUAL DIFFERENTIAL MANUAL DIFFERENTIAL (MANUAL DIFF)
[2025-01-26] MEDS: ONDANSETRON 4MG/2ML VIAL 4 MG IV (10:43)
[2025-01-26 10:52] LABS: T4 (Thyroxine) 8.4 ug/dl (5.53-11.0)
[2025-01-26 10:55] LABS: Eosinophils % 19 % (0-3); Lymphocytes % 25 % (10-50); Monocytes % 2 % (2-9); Neutrophils % 53 % (42-76); Platelet Estimate Normal; RBC Morphology Normal; Total Cells Counted 100
--- NOTE | 2025-01-26 11:00 | PC.NURSE ---
rounded on pt at this time. pt reminded that we still need a stool sample if he is able to give one
[2025-01-26 11:05] LABS: Thyroid Stimulating Hormone 1.13 uIU/mL (0.465-4.68)
--- NOTE | 2025-01-26 11:45 | PC.NURSE ---
pt still unable to give stool specimen. pt agreeable to going home with supplies and an outpt order form to follow up. no complaints at this time
[2025-01-26] MEDS: FAMOTIDINE 20MG/2ML VIAL 20 MG IV (11:47)
[2025-01-26 12:32] LABS: Adenovirus F 40/41, stool Not Detected (NotDetected); Astrovirus Not Detected (NotDetected); Campylobacter Not Detected (NotDetected); Clostridium Difficile A/B, PCR Not Detected (NotDetected); Cryptosporidium Not Detected (NotDetected); Cyclospora Cayetanesis Not Detected (NotDetected); Entamoeba histolytica Not Detected (NotDetected); Enteroaggregative E coli Not Detected (NotDetected); Enteropathogenic E coli Not Detected (NotDetected); Enterotoxigenic E coli Not Detected (NotDetected); Giardia lamblia Not Detected (NotDetected); Norovirus Not Detected (NotDetected); Plesimonas Shigalloides, PCR Not Detected (NotDetected); Rotavirus A Not Detected (NotDetected); Salmonella, PCR Not Detected (NotDetected); Sapovirus Not Detected (NotDetected); Shiga-like toxin E coli Not Detected (NotDetected); Shigella Enterovasive E coli Not Detected (NotDetected); Vibrio Cholerae Not Detected (NotDetected); Vibrio, PCR Not Detected (NotDetected); Yersinia Entercolitica, PCR Not Detected (NotDetected)
== END 2025-01-26 12:34 | disposition home or self-care (01) ==
PROVIDERS: Emergency Provider Emergency Medicine; PCP Internal Medicine
DX: R19.7 Diarrhea, unspecified (principal); D72.10 Eosinophilia, unspecified; R74.8 Abnormal levels of other serum enzymes; E11.9 Type 2 diabetes mellitus without complications
CPT/HCPCS: 80053; 82803; 83690; 83735; 84100; 84436; 84443; 85007; 85025; 85027; 87507; 93005; 96361; 96374; 96375; 99284; J2405; J7120

== ENCOUNTER 2025-02-01 22:13 | Emergency (ER) | payer OTHER, SELFPAY ==
[2025-02-01 22:18] VITALS: BP 135/95; PULSE 71; RESP 17; TEMP 36.8; O2SAT 96; BMI 29.1
[2025-02-01 22:30] VITALS: BP 128/87; PULSE 74; O2SAT 98
--- NOTE | 2025-02-01 22:31 | CT_ITS ---
PROCEDURE INFORMATION: Exam: CT Abdomen And Pelvis With Contrast Exam date and time: 02/01/2025 11:05 PM Age: 54 years old Clinical indication: Abdominal pain; Additional info: Upper abd pain/epigastric pain/n/v TECHNIQUE: Imaging protocol: Computed tomography of the abdomen and pelvis with contrast. Radiation optimization: All CT scans at this facility use at least one of these dose optimization techniques: automated exposure control; mA and/or kV adjustment per patient size (includes targeted exams where dose is matched to clinical indication); or iterative reconstruction. Contrast material: ISOVUE; Contrast volume: 75 ml; Contrast route: IV; COMPARISON: No relevant prior studies available. FINDINGS: Lungs: Minor subsegmental atelectasis in the lung bases. Heart: Heart size normal. Esophagus: The visualized distal esophagus is largely contracted without gross abnormality. Liver: Granulomatous calcification in the anterior limb. Normal contour. No mass lesions. No intrahepatic biliary ductal dilatation. Gallbladder and biliary ducts: Prior cholecystectomy with expected mild postoperative dilatation of the common bile duct. Pancreas: Mild pancreatic atrophy without acute abnormality. No pancreatic ductal dilatation. Spleen: Mild splenomegaly measuring 15.5 cm. Granulomatous calcifications in the spleen. Adrenal glands: Normal. No adrenal mass. Kidneys and ureters: No acute abnormalities. No hydronephrosis or hydroureter. 4 mm nonobstructive stone in the lower pole of the left kidney. No ureteral stones. Stomach and bowel: Stomach demonstrates moderate fluid distension without luba dilatation. Moderate fluid content throughout the small bowel without dilatation or transition point, and question mildly increased mucosal enhancement. The findings are suspicious for gastroenteritis. No evidence of obstruction or perforation. There are a few colonic diverticula present without evidence of acute diverticulitis. Appendix: The appendix is normal in caliber and demonstrates no evidence of appendicitis. Intraperitoneal space: No peritoneal free fluid or air. Vasculature: No acute vascular abnormalities. Lymph nodes: No adenopathy. Urinary bladder: Unremarkable as visualized. Reproductive: Moderately enlarged prostate. Bones/joints: No acute osseous abnormalities. Mild-moderate thoracolumbar spondylosis. Soft tissues: Small fatty umbilical hernia and small bilateral fatty inguinal hernias. No evidence of associated bowel herniation or strangulation. IMPRESSION: 1. Findings suspicious for gastroenteritis. No evidence of bowel obstruction or perforation. 2. There is a 4 mm nonobstructive left renal stone. No hydronephrosis. 3. Mild splenomegaly. 4. Additional nonemergent findings detailed above.
--- NOTE | 2025-02-01 22:35 | ED_ITS ---
Discharge Plan Disposition Patient Disposition: Home, Self-Care Condition: Good Prescriptions Prescriptions: New metoclopramide HCl 10 mg tablet 10 mg PO Q8H PRN (Reason: nausea and vomiting) Qty: 15 0RF No Action tadalafil 5 mg tablet 5 mg PO DAILY (DME) pen needle, diabetic [BD Ultra-Fine Mini Pen Needle] 31 gauge x 3/16 needle See Rx Instructions .Route Rx Instructions: As directed Jardiance 25 mg tablet 25 mg PO DAILY Qty: 90 1RF lisinopril 10 mg tablet 10 mg PO DAILY Qty: 90 3RF nebivolol [Bystolic] 5 mg tablet 5 mg PO DAILY Qty: 90 3RF pravastatin 40 mg tablet 40 mg PO DAILY Qty: 90 3RF lansoprazole 30 mg capsule,delayed release(DR/EC) 30 mg PO DAILY Qty: 90 3RF divalproex 500 mg tablet extended release 24 hr 500 mg PO DAILY (DME) Dexcom G7 Paper Handler Misc See Rx Instructions .Route Qty: 1 0RF Rx Instructions: As directed, check BG TID and prn (DME) Dexcom G7 Sensor Device See Rx Instructions .Route Qty: 1 3RF Rx Instructions: As directed to monitor blood glucose, change sensor every 10 days insulin glargine U-300 conc [Toujeo SoloStar U-300 Insulin] 300 unit/mL (1.5 mL) insulin pen See Rx Instructions .ROUTE .COMPLEX Qty: 4.5 3RF Dose Instruction: INJECT 30 UNITS SUBCUTANEOUSLY EVERY DAY Rx Instructions: INJECT 30 UNITS SUBCUTANEOUSLY EVERY DAY alprazolam 0.5 mg tablet 0.5 mg PO DAILY PRN (Reason: anxiety) Qty: 30 0RF testosterone 20.25 mg/1.25 gram (1.62 %) gel in metered-dose pump 2 pump topical DAILY Qty: 75 0RF Rx Instructions: apply 1 pump amount over max area of EACH upper arm and shoulder tirzepatide 7.5 mg/0.5 mL pen injector 7.5 mg SQ WEEKLY Qty: 2.5 2RF venlafaxine 75 mg capsule,extended release 24hr 75 mg PO DAILY Qty: 60 1RF venlafaxine 150 mg capsule,extended release 24hr 150 mg PO DAILY Qty: 60 1RF ondansetron 4 mg tablet,disintegrating 4 mg PO Q6HP PRN (Reason: nausea and vomiting) 4 Days Qty: 16 0RF ibuprofen 800 mg tablet 800 mg PO Q8H PRN (Reason: pain) Qty: 20 0RF ondansetron 4 mg tablet,disintegrating 4 mg PO Q8H PRN (Reason: nausea and vomiting) 4 Days Qty: 12 0RF Referrals Follow up/Referrals: Zane Hazel DO [Primary Care Provider] - See instructions Activity Restrictions/Add. Instructions Additional Instructions/Restrictions: You were evaluated in the ER and are believed to be appropriate for discharge at this time. Drink plenty of fluids to maintain good hydration. Take the newly prescribed metoclopramide if needed for nausea and vomiting. You should NOT take this at the same time as Zofran, but you can alternate them if you find that to be helpful. Make an appointment with your primary care doctor for reevaluation in a few days. Return to the ER with any new, worsening, or otherwise concerning symptoms. Clinical Impressions Clinical Impression: Gastroenteritis, Nausea & vomiting Instructions Patient Instructions: DI for Nausea -- Adult Print Language Print Language: Cameroonian Discharge ED Provider: Tory Macias General Adult HPI <Tory Macias DO - Last Filed: 02/01/25 23:21> General Chief complaint: Nausea/Vomiting/Diarrhea Stated complaint: nausea , vomiting Time Seen by Provider: 02/01/25 22:23 Mode of Arrival: Ambulatory Source of Information: Patient Description of Symptoms (Recalled from ER Triage Doc. by RN): He states he has been having nausea and vomiting all day. He states he took his Mounjaro injection on Thursday and thinks it may be a side effect of it. He denies any recent fever or diarrhea. He states he has not been able to eat or drink today. History of Present Illness HPI narrative: This patient is a 54-year-old male with a history of type 2 diabetes on un presenting to the emergency department for evaluation with concern for nausea, vomiting, upper abdominal pain and cramping. Patient notes that he took his Mounjaro on Thursday, and yesterday he started feeling bad but today he is much worse. He notes that he is not been able to eat or drink anything all day today. He is taken Zofran twice with no improvement. Emesis is nonbloody nonbilious, last bowel movement was earlier today and was nonbloody nonmelanotic. He has a history of prior cholecystectomy. Of note, he is evaluated here in the emergency department 01/26/2025 for diarrhea, which was felt to be either related to likely his Mounjaro use versus eating shellfish which he may have an allergy to. Workup including labs were reassuring at that time, stool panel was negative, and he was discharged home with instructions for supportive management. Imaging was not obtained then. He discharged his Mounjaro dose from 7.5 mg back to 5 mg, but is worried the symptoms still may be related to Mounjaro. Related Data Home Medications ?Medication ?Instructions ?Recorded ?Confirmed pen needle, diabetic 31 gauge x 06/16/24 12/02/2412/04 (BD Ultra-Fine Mini Pen Needle) tadalafil 5 mg tablet 5 mg PO DAILY 06/16/24 12/02/24 divalproex 500 mg tablet,extended 500 mg PO DAILY 06/17/24 12/02/24 release 24 hr Previous Rx's ?Medication ?Instructions ?Recorded empagliflozin 25 mg tablet 25 mg PO DAILY #90 tabs 06/16/24 (Jardiance) lansoprazole 30 mg capsule,delayed 30 mg PO DAILY #90 caps 06/16/24 release lisinopril 10 mg tablet 10 mg PO DAILY #90 tabs 06/16/24 nebivolol 5 mg tablet (Bystolic) 5 mg PO DAILY #90 tabs 06/16/24 pravastatin 40 mg tablet 40 mg PO DAILY #90 tabs 06/16/24 blood-glucose,patient relations manager,cont #1 ea 09/08/24 (Dexcom G7 Paper Handler) blood-glucose sensor (Dexcom G7 #1 ea 10/20/24 Sensor device) ondansetron 4 mg disintegrating 4 mg PO Q6HP PRN nausea and 11/20/24 tablet vomiting 4 days #16 tabs insulin glargine U-300 conc 300 See Rx Instructions .Route 01/02/25 unit/mL (1.5 mL) subcutaneous pen .COMPLEX #4.5 mL (Toujeo SoloStar U-300 Insulin) alprazolam 0.5 mg tablet 0.5 mg PO DAILY PRN anxiety #30 01/04/25 tabs testosterone 2 pump topical DAILY #75 grams 01/09/25 tirzepatide 7.5 mg/0.5 mL 7.5 mg (0.5 mL) SQ WEEKLY #2.5 mL 01/09/25 subcutaneous pen injector venlafaxine 150 mg 150 mg PO DAILY #60 caps 01/13/25 capsule,extended release 24 hr venlafaxine 75 mg capsule,extended 75 mg PO DAILY #60 caps 01/13/25 release 24 hr ibuprofen 800 mg tablet 800 mg PO Q8H PRN pain #20 tabs 01/26/25 ondansetron 4 mg disintegrating 4 mg PO Q8H PRN nausea and 01/26/25 tablet vomiting 4 days #12 tabs metoclopramide HCl 10 mg tablet 10 mg PO Q8H PRN nausea and 02/02/25 vomiting #15 tabs Allergies Allergy/AdvReac Type Severity Reaction Status Date / Time promethazine (From Phenergan) Allergy Palpitation Verified 02/01/25 22:24 s PFSH <Tory Macias DO - Last Filed: 02/01/25 23:21> PFS Disclaimer: The information contained in this section may have been updated after the patient was seen, as this information can be updated by other users. Medical History Low testosterone level in male Hyperlipidemia Diabetes mellitus Hypertension Surgical History History of colonoscopy H/O vasectomy Hx of cholecystectomy Hx of tonsillectomy Family History Mother FHx: mental illness Father Cancer Other No significant family history Social History Smoking Status: Never smoker alcohol intake: current alcohol intake frequency: holidays/special occasions only substance use type: denies use current occupational status: employed Travel in the last 8 weeks?: None Have you lived/traveled outside [place] in past 30 days?: No Contact w/someone who lives/traveled outside US past 30 days?: No Exposure to someone with infectious disease in past 14 days?: No Do you have a fever (greater than 100.4 F or 38 C)?: No Have you tested positive for COVID-19?: No Exposed to someone with COVID-19 in past 14 days?: No Do you have a sore throat?: No Do you have a cough?: No Do you have any weakness?: No Do you have any diarrhea?: No Are you experiencing any unusual bleeding?: No Do you have any muscle aches/pain?: No Do you have any abdominal pain?: No Are you experiencing loss of taste or smell?: No Other Medical History Have you received the Pneumonia Vaccine: No <Tory Macias DO - Last Filed: 02/01/25 23:21> ROS Obtained: Yes All systems reviewed & no additional complaints except as documented Physical Exam <Tory Macias DO - Last Filed: 02/01/25 23:21> General General appearance: alert and in no apparent distress Head Head exam: atraumatic and normocephalic Eye Eye exam: Present normal appearance, PERRL and EOMI ENT ENT exam: Present normal exam, normal oropharynx, mucous membranes moist and normal external ear exam Neck Neck exam: Present normal inspection, full ROM and trachea midline; Absent tenderness Chest Chest inspection: Present normal inspection and symmetric chest wall rise; Absent tenderness Respiratory Respiratory exam: Present normal lung sounds bilaterally; Absent respiratory distress, wheezes, stridor or accessory muscle use Cardiovascular Cardiovascular exam: Present regular rate and normal rhythm Abdominal Exam Abdominal exam: Present soft, distention (Mild) and tenderness (Epigastric/left upper quadrant); Absent guarding, rebound or rigidity Extremities Exam Extremities exam: Present normal inspection, full ROM and normal capillary refill; Absent tenderness or edema Back Exam Back exam: Present normal inspection and full ROM; Absent tenderness Neurological Exam Neurological exam: Present alert, oriented X3, CN II-XII intact and normal gait; Absent motor sensory deficit Psychiatric Psychiatric exam: Present normal affect and normal mood Skin Skin exam: Present warm and dry Medical Decision Making <Tory Macias DO - Last Filed: 02/01/25 23:21> Medical Records Medical records reviewed: Yes I reviewed the patient's medical records. Screening: Per USPSTF and CDC recommendations, given the prevalence of disease in our region, it is our hospital?s policy to screen for HIV and viral Hepatitis for all patients aged 18 and over and those with ongoing risk factors. Damien Inquiry Pt receiving controlled substance: No Vital Signs: 02/01/25 22:18 02/01/25 22:30 02/01/25 23:26 Temperature 98.2 F Temperature Source Oral Pulse Rate 74 75 Pulse Rate [Right Brachial] 71 Respiratory Rate 17 Blood Pressure 128/87 114/90 Blood Pressure [Right Arm] 135/95 H Blood Pressure Mean 100 Blood Pressure Mean [Right Arm] 108 Blood Pressure Source Blood Pressure Source [Right Arm] Automatic Cuff Blood Pressure Position Blood Pressure Position [Right Arm] Sitting 02 Sat by Pulse Oximetry 96 98 96 Oxygen Delivery Method Room Air 02/01/25 23:30 02/02/25 00:00 02/02/25 00:20 Temperature Temperature Source Pulse Rate 79 79 76 Pulse Rate [Right Brachial] Respiratory Rate Blood Pressure 109/79 L 111/76 107/73 L Blood Pressure [Right Arm] Blood Pressure Mean 84 79 Blood Pressure Mean [Right Arm] Blood Pressure Source Blood Pressure Source [Right Arm] Blood Pressure Position Blood Pressure Position [Right Arm] 02 Sat by Pulse Oximetry 96 95 95 Oxygen Delivery Method 02/02/25 00:24 Temperature 98.2 F Temperature Source Oral Pulse Rate 78 Pulse Rate [Right Brachial] Respiratory Rate 17 Blood Pressure 107/73 L Blood Pressure [Right Arm] Blood Pressure Mean Blood Pressure Mean [Right Arm] Blood Pressure Source Automatic Cuff Blood Pressure Source [Right Arm] Blood Pressure Position Sitting Blood Pressure Position [Right Arm] 02 Sat by Pulse Oximetry Oxygen Delivery Method Room Air Lab Data Lab results reviewed: Yes I reviewed the patient's lab results. Lab Results 02/01/25 22:23: WBC 12.8 H, RBC 6.17, Hgb 18.0, Hct 54.0 H, MCV 87.5, MCH 29.2, MCHC 33.3, RDW 13.2, Plt Count 281, MPV 9.4, Neut % (Auto) 69.1, Lymph % (Auto) 12.4, [place] % (Auto) 5.4, Eos % (Auto) 11.8, Baso % (Auto) 0.5, Neut # (Auto) 8.8 H, Lymph # (Auto) 1.6, [place] # (Auto) 0.7, Eos # (Auto) 1.5 H, Baso # (Auto) 0.1, Sodium 137, Potassium 4.3, Chloride 101, Carbon Dioxide 32 H, Anion Gap 8.3, BUN 10, Creatinine 0.90, Estimated Creat Clear 129, Estimated GFR 88, Est GFR ( Amer) 106, Glucose 140 H, Calcium 9.4, Magnesium 2.3, Total Bilirubin 0.5, AST 39, ALT 55, Alkaline Phosphatase 132 H, Troponin I < 0.01, Total Protein 7.2, Albumin 4.3, Globulin 2.9, Albumin/Globulin Ratio 1.5, Lipase 191 02/01/25 23:26: Urine Color Yellow, Urine Appearance Clear, Urine pH 6.5, Ur Specific [place] 1.010, Urine Protein Negative, Urine Glucose (UA) 3+, Urine Ketones 2+, Urine Blood Negative, Urine Nitrate Negative, Urine Bilirubin Negative, Urine Urobilinogen 0.2, Ur Leukocyte Esterase Negative, Urine RBC None, Urine WBC Occasional, Ur Squamous Epith Cells None, Urine Bacteria Trace 02/01/25 22:23 02/01/25 22:23 Orders (Tests/Meds): ED MEDICATIONS Discontinued Medications Generic Name Dose Route Start Last Admin Trade Name Freq PRN Reason Stop Dose Admin Dicyclomine HCl 20 mg 02/01/25 22:31 02/01/25 22:39 Dicyclomine 10mg Capsule PO 02/01/25 22:32 20 mg ONCE ONE Administration Famotidine 20 mg 02/01/25 22:31 02/01/25 22:44 Famotidine 20mg/2ml Vial IV 02/01/25 22:32 20 mg ONCE ONE Administration Lactated Ringer's 1,000 mls @ 999 mls/hr 02/01/25 22:31 02/01/25 22:50 Lactated Ringer's 1000 Ml Bag IV 02/01/25 23:31 999 mls/hr .Q1H1M ONE Administration Iopamidol 75 ml 02/01/25 23:11 02/01/25 23:12 Iopamidol-370 (76%);100ml Bottle IV 02/01/25 23:12 75 ml ONCE ONE Administration Ketorolac Tromethamine 30 mg 02/01/25 23:20 02/01/25 23:31 Ketorolac 30mg/Ml Vial IV 02/01/25 23:21 30 mg ONCE ONE Administration Metoclopramide HCl 5 mg 02/01/25 22:31 02/01/25 22:40 Metoclopramide Hcl 10mg/2ml Vial IVP 02/01/25 22:32 5 mg ONCE ONE Administration Sodium Chloride 8 ml 02/01/25 22:31 02/01/25 22:50 Sodium Chloride 0.9% 10ml Vial IV 03/03/25 22:30 8 ml NEEDED PRN Administration dilute pepcid Sodium Chloride 10 ml 02/01/25 23:11 02/01/25 23:12 Sodium Chloride 0.9% 10ml Syr (Rad Only) IV 03/03/25 23:10 10 ml NEEDED PRN Administration Maintain IV Site ORDERS Category Date Time Status CT abdomen pelvis w con Stat Cat Scan 02/01/25 22:31 Completed Complete Blood Count Auto Diff Stat Lab 02/01/25 22:23 Completed Comprehensive Metabolic Panel Stat Lab 02/01/25 22:23 Completed Lipase Stat Lab 02/01/25 22:23 Completed MAG [Magnesium] Stat Lab 02/01/25 22:23 Completed Trop I [Troponin I] Stat Lab 02/01/25 22:23 Completed Troponin I Q3H Lab 02/02/25 01:45 Ordered Troponin I Q3H Lab 02/02/25 04:45 Ordered UA [Urinalysis and Microscopic] Stat Lab 02/01/25 23:26 Completed ECG Data Tracing #1: I reviewed this ECG and interpreted as documented below: Normal sinus rhythm with a ventricular of [address] changes concerning for ischemia. Normal intervals ECG initial impression date: 02/01/25 ECG initial impression time: 22:56 Medical Decision Narrative: In summary, this patient is a 54-year-old male presenting to the Emergency Department for evaluation of epigastric and left upper quadrant abdominal pain, nausea, and vomiting. He did just take his Mounjaro dose 2 days ago and has had known side effects in the past. Differential diagnoses considered include but are not limited to medication adverse reaction, gastroenteritis, gastroparesis, peptic ulcer disease, pancreatitis, bowel obstruction among other. Ruling out the most morbid conditions drove assessment. It should be noted patient's history includes type 2 diabetes which or may not be at goal therapy. This complicates all aspects of care by increasing patient's risk for morbidity. I reviewed patient's past medical records and noted evaluation here by myself 02/01/2025 as detailed in HPI. On exam, the patient is lying in bed in no acute distress. He does have some left upper quadrant/epigastric tenderness to palpation, but no rebound or guarding. Workup included CBC, CMP, lipase, troponin, magnesium, urinalysis, EKG, CT abdomen pelvis with IV contrast. He was given a bolus of IV fluids as well as IV Pepcid, Reglan, and oral Bentyl for symptomatic improvement. Labs obtained are reassuring with only mild leukocytosis, likely leukemoid reaction of vomiting. Chemistry is reassuring with normal liver enzymes and normal lipase. EKG obtained is reassuring. Patient care was signed out to the oncoming provider, Dr. Fink, pending CT and dispo. <Isadora Fink MD - Last Filed: 02/02/25 00:30> Vital Signs: 02/01/25 22:18 02/01/25 22:30 02/01/25 23:26 Temperature 98.2 F Temperature Source Oral Pulse Rate 74 75 Pulse Rate [Right Brachial] 71 Respiratory Rate 17 Blood Pressure 128/87 114/90 Blood Pressure [Right Arm] 135/95 H Blood Pressure Mean 100 Blood Pressure Mean [Right Arm] 108 Blood Pressure Source Blood Pressure Source [Right Arm] Automatic Cuff Blood Pressure Position Blood Pressure Position [Right Arm] Sitting 02 Sat by Pulse Oximetry 96 98 96 Oxygen Delivery Method Room Air 02/01/25 23:30 02/02/25 00:00 02/02/25 00:20 Temperature Temperature Source Pulse Rate 79 79 76 Pulse Rate [Right Brachial] Respiratory Rate Blood Pressure 109/79 L 111/76 107/73 L Blood Pressure [Right Arm] Blood Pressure Mean 84 79 Blood Pressure Mean [Right Arm] Blood Pressure Source Blood Pressure Source [Right Arm] Blood Pressure Position Blood Pressure Position [Right Arm] 02 Sat by Pulse Oximetry 96 95 95 Oxygen Delivery Method 02/02/25 00:24 Temperature 98.2 F Temperature Source Oral Pulse Rate 78 Pulse Rate [Right Brachial] Respiratory Rate 17 Blood Pressure 107/73 L Blood Pressure [Right Arm] Blood Pressure Mean Blood Pressure Mean [Right Arm] Blood Pressure Source Automatic Cuff Blood Pressure Source [Right Arm] Blood Pressure Position Sitting Blood Pressure Position [Right Arm] 02 Sat by Pulse Oximetry Oxygen Delivery Method Room Air Lab Data Lab Results 02/01/25 22:23: WBC 12.8 H, RBC 6.17, Hgb 18.0, Hct 54.0 H, MCV 87.5, MCH 29.2, MCHC 33.3, RDW 13.2, Plt Count 281, MPV 9.4, Neut % (Auto) 69.1, Lymph % (Auto) 12.4, [place] % (Auto) 5.4, Eos % (Auto) 11.8, Baso % (Auto) 0.5, Neut # (Auto) 8.8 H, Lymph # (Auto) 1.6, [place] # (Auto) 0.7, Eos # (Auto) 1.5 H, Baso # (Auto) 0.1, Sodium 137, Potassium 4.3, Chloride 101, Carbon Dioxide 32 H, Anion Gap 8.3, BUN 10, Creatinine 0.90, Estimated Creat Clear 129, Estimated GFR 88, Est GFR ( Amer) 106, Glucose 140 H, Calcium 9.4, Magnesium 2.3, Total Bilirubin 0.5, AST 39, ALT 55, Alkaline Phosphatase 132 H, Troponin I < 0.01, Total Protein 7.2, Albumin 4.3, Globulin 2.9, Albumin/Globulin Ratio 1.5, Lipase 191 02/01/25 23:26: Urine Color Yellow, Urine Appearance Clear, Urine pH 6.5, Ur Specific [place] 1.010, Urine Protein Negative, Urine Glucose (UA) 3+, Urine Ketones 2+, Urine Blood Negative, Urine Nitrate Negative, Urine Bilirubin Negative, Urine Urobilinogen 0.2, Ur Leukocyte Esterase Negative, Urine RBC None, Urine WBC Occasional, Ur Squamous Epith Cells None, Urine Bacteria Trace Orders (Tests/Meds): ED MEDICATIONS Discontinued Medications Generic Name Dose Route Start Last Admin Trade Name Freq PRN Reason Stop Dose Admin Dicyclomine HCl 20 mg 02/01/25 22:31 02/01/25 22:39 Dicyclomine 10mg Capsule PO 02/01/25 22:32 20 mg ONCE ONE Administration Famotidine 20 mg 02/01/25 22:31 02/01/25 22:44 Famotidine 20mg/2ml Vial IV 02/01/25 22:32 20 mg ONCE ONE Administration Lactated Ringer's 1,000 mls @ 999 mls/hr 02/01/25 22:31 02/01/25 22:50 Lactated Ringer's 1000 Ml Bag IV 02/01/25 23:31 999 mls/hr .Q1H1M ONE Administration Iopamidol 75 ml 02/01/25 23:11 02/01/25 23:12 Iopamidol-370 (76%);100ml Bottle IV 02/01/25 23:12 75 ml ONCE ONE Administration Ketorolac Tromethamine 30 mg 02/01/25 23:20 02/01/25 23:31 Ketorolac 30mg/Ml Vial IV 02/01/25 23:21 30 mg ONCE ONE Administration Metoclopramide HCl 5 mg 02/01/25 22:31 02/01/25 22:40 Metoclopramide Hcl 10mg/2ml Vial IVP 02/01/25 22:32 5 mg ONCE ONE Administration Sodium Chloride 8 ml 02/01/25 22:31 02/01/25 22:50 Sodium Chloride 0.9% 10ml Vial IV 03/03/25 22:30 8 ml NEEDED PRN Administration dilute pepcid Sodium Chloride 10 ml 02/01/25 23:11 02/01/25 23:12 Sodium Chloride 0.9% 10ml Syr (Rad Only) IV 03/03/25 23:10 10 ml NEEDED PRN Administration Maintain IV Site ORDERS Category Date Time Status CT abdomen pelvis w con Stat Cat Scan 02/01/25 22:31 Completed Complete Blood Count Auto Diff Stat Lab 02/01/25 22:23 Completed Comprehensive Metabolic Panel Stat Lab 02/01/25 22:23 Completed Lipase Stat Lab 02/01/25 22:23 Completed MAG [Magnesium] Stat Lab 02/01/25 22:23 Completed Trop I [Troponin I] Stat Lab 02/01/25 22:23 Completed Troponin I Q3H Lab 02/02/25 01:45 Ordered Troponin I Q3H Lab 02/02/25 04:45 Ordered UA [Urinalysis and Microscopic] Stat Lab 02/01/25 23:26 Completed Medical Decision Narrative: In summary, this patient is a 54-year-old male presenting to the Emergency Department for evaluation of epigastric and left upper quadrant abdominal pain, nausea, and vomiting. He did just take his Mounjaro dose 2 days ago and has had known side effects in the past. Differential diagnoses considered include but are not limited to medication adverse reaction, gastroenteritis, gastroparesis, peptic ulcer disease, pancreatitis, bowel obstruction among other. Ruling out the most morbid conditions drove assessment. It should be noted patient's history includes type 2 diabetes which or may not be at goal therapy. This complicates all aspects of care by increasing patient's risk for morbidity. I reviewed patient's past medical records and noted evaluation here by myself 02/01/2025 as detailed in HPI. On exam, the patient is lying in bed in no acute distress. He does have some left upper quadrant/epigastric tenderness to palpation, but no rebound or guarding. Workup included CBC, CMP, lipase, troponin, magnesium, urinalysis, EKG, CT abdomen pelvis with IV contrast. He was given a bolus of IV fluids as well as IV Pepcid, Reglan, and oral Bentyl for symptomatic improvement. Labs obtained are reassuring with only mild leukocytosis, likely leukemoid reaction of vomiting. Chemistry is reassuring with normal liver enzymes and normal lipase. EKG obtained is reassuring. Patient care was signed out to the oncoming provider, Dr. Fink, pending CT and dispo. Fink: Upon my assumption of care patient is stable. I agree with the assessment and plan from Dr. Macias. CT imaging pending. I reviewed labs demonstrating mild leukocytosis with no anemia, normal platelets, eosinophilia improved from previous, CMP not acutely actionable, troponin undetectably low reassuring against cardiac pathology, lipase normal at 191, UA negative for findings of infection CT abdomen pelvis personally interpreted demonstrates significant contents in the stomach but no evidence of bowel obstruction, see radiology read for final interpretation which, and some findings of gastroenteritis as well as incidental findings of the spleen and intrarenal stone. All incidental findings were discussed with the patient. Patient had received medications prior to my assumption of care and reports after receiving the Reglan he had significant improvement of symptoms. He states he feels much better. He is willing to try oral intake. He was able to drink without any pain or emesis. I believe patient is appropriate for discharge at this time and he is comfortable with this plan. I provided a prescription for Reglan for outpatient management of symptoms. I also discussed with him maintaining good hydration, close outpatient follow-up with his primary care doctor to discuss his visit to the ER as well as to discuss his Mounjaro. Patient admits he is not sure if he is going to be able to stay on that medication due to its side effects. I instructed him to discuss that closely with his PCP. He was also given strict return precautions for the ER. He indicated understanding and the patient was discharged in stable condition Critical Care <Tory Macias, DO - Last Filed: 02/01/25 23:21> Critical Care Time Critical Care Time: No
[2025-02-01] MEDS: DICYCLOMINE 10MG CAPSULE 20 MG PO (22:39)
[2025-02-01 22:40] LABS: Basophils # 0.1 K/mm3 (0-0.2); Basophils % 0.5 % (0.1-2.0); Eosinophils # 1.5 Kmm3 (0.0-0.4); Eosinophils % 11.8 % (0.1-12.0); Immature Granulocytes % 0.8 %; Lymphocytes # 1.6 K/mm3 (0.7-4.5); Lymphocytes % 12.4 % (10-50); Mean Corpuscular HGB Conc 33.3 g/dL (31.8-35.4); Mean Corpuscular Hemoglobin 29.2 pg (27.0-31.2); Mean Corpuscular Volume 87.5 fl (80-94); Mean Platelet Volume 9.4 fl (7.4-10.4); Monocytes # 0.7 K/mm3 (0.1-1.0); Monocytes % 5.4 % (1.7-9.3); Neutrophils # 8.8 K/mm3 (1.8-7.8); Neutrophils % 69.1 % (37.0-80.0); Nucleated Red Blood Cells # 0 10^3/uL; Nucleated Red Blood Cells % 0 %; Platelet Count 281 K/mm3 (142-424); Red Blood Count 6.17 M/mm3 (4.60-6.20); Red Cell Distribution Width 13.2 % (11.5-17.5); Red Cell Distribution Width-SD 41.9 fL; White Blood Count 12.8 K/mm3 (4.8-10.8)
[2025-02-01] MEDS: METOCLOPRAMIDE HCL 10MG/2ML VIAL 5 MG IVP (22:40)
[2025-02-01] MEDS: FAMOTIDINE 20MG/2ML VIAL 20 MG IV (22:44)
[2025-02-01 22:48] LABS: Alanine Aminotransferase 55 U/L (12-78); Albumin Level 4.3 g/dl (3.5-5.0); Albumin/Globulin Ratio 1.5 (1.1-1.8); Alkaline Phosphatase 132 U/L (38-126); Anion Gap 8.3 mEq/L (5-15); Aspartate Amino Transferase 39 U/L (17-59); Bilirubin,Total 0.5 mg/dl (0.2-1.3); Blood Urea Nitrogen 10 mg/dl (9-20); Calcium 9.4 mg/dl (8.4-10.2); Carbon Dioxide 32 mmol/L (22.0-30.0); Chloride 101 mmol/L (98-107); Creatinine Clearance Estimated 129 mL/min (50-200); Estimated Glomerular Filt Rate 88 ml/min (>60); GFR (African American) 106 ML/MIN (>60); Globulin 2.9 g/dL (1.3-3.2); Glucose 140 mg/dl (74-100); Lipase 191 U/L (23-300); Magnesium 2.3 mg/dl (1.6-2.3); Potassium 4.3 mmoL/L (3.5-5.1); Sodium 137 mmol/L (136-145); Total Protein,Serum 7.2 g/dl (6.3-8.2)
[2025-02-01] MEDS: LACTATED RINGERS 1000ML 1,000 ML 999 ML IV (22:50)
[2025-02-01] MEDS: SODIUM CHLORIDE 0.9% 10ML VIAL 8 ML IV (22:50)
--- NOTE | 2025-02-01 22:55 | ECG_ITS ---
APPROVED REPORT Exam: Resting ECG HR:69 bpm ECG Measurements Heart Rate 69 AXES WA 172 P 39 QRSd 90 QRS 8 QT 371 T 6 QTc 390 Conclusion SINUS RHYTHM NORMAL ECG Electronically signed by : KAT VALDEZ, 02/01/2025 23:26:01
[2025-02-01] MEDS: IOPAMIDOL-370 (76%);100ML BOTTLE 75 ML IV (23:12)
[2025-02-01] MEDS: SODIUM CHLORIDE 0.9% 10ML SYR (RAD ONLY) 10 ML IV (23:12)
[2025-02-01 23:21] LABS: Troponin I < 0.01 ng/ml (0.00-0.034)
[2025-02-01 23:26] VITALS: BP 114/90; PULSE 75; O2SAT 96
[2025-02-01 23:30] VITALS: BP 109/79; PULSE 79; O2SAT 96
[2025-02-01 23:31] LABS: Microscopic, Urine URINE MICROSCOPIC (MICROSCOPIC)
[2025-02-01] MEDS: KETOROLAC 30MG/ML VIAL 30 MG IV (23:31)
[2025-02-01 23:55] LABS: Appearance,Urine CLEAR (Clear); Bilirubin,Urine Negative (Negative); Blood, Urine Negative (Negative); Color,Urine YELLOW (Yellow); Glucose,Urine (UA) 3+ (Negative); Ketones,Urine 2+ (Negative); Leukocyte Esterase,Urine Negative (Negative); Nitrate,Urine Negative (Negative); PH,Urine 6.5 (5.0-8.5); Protein,Urine Negative (Negative); Urobilinogen,Urine 0.2 EU/dl (0.2)
[2025-02-02] VITALS: BP 111/76; PULSE 79; O2SAT 95
[2025-02-02 00:20] VITALS: BP 107/73; PULSE 76; O2SAT 95
[2025-02-02 00:22] LABS: Bacteria,Urine Trace /lpf; WBC,Urine Occasional #/hpf (0-3)
[2025-02-02 00:24] VITALS: BP 107/73; PULSE 78; RESP 17; TEMP 36.8; O2SAT 96
== END 2025-02-02 00:26 | disposition home or self-care (01) ==
PROVIDERS: Emergency Provider Emergency Medicine; PCP Internal Medicine
DX: R10.12 Left upper quadrant pain (principal); R10.13 Epigastric pain; R10.812 Left upper quadrant abdominal tenderness; R10.816 Epigastric abdominal tenderness; K52.9 Noninfective gastroenteritis and colitis, unspecified; E11.9 Type 2 diabetes mellitus without complications
CPT/HCPCS: 74177; 80053; 81001; 83690; 83735; 84484; 85025; 93005; 96361; 96374; 96375; 99285; J1885; J2765; J7120; Q9967